=== PATIENT | male | born 1980 | race Caucasian/White ===

== ENCOUNTER 2016-08-05 19:01 | Emergency (ER) | payer OTHER ==
[~2016-08-05] VITALS: Ht 167.6 cm; Wt 104.0 kg
[~2016-08-05 19:01] MED LIST: ALBU18HF IH; ARIP5TAB7 PO; AUG875 PO; LOPE1LIQ32 PO
[2016-08-05 19:17] VITALS: Ht 167.6 cm; Wt 104.0 kg
[2016-08-05] MEDS ORDERED: METHYLPREDNISOLONE 125 MG INJ IM STA (19:35)
[2016-08-05] MEDS ORDERED: TERBUTALINE 1 MG/ML INJ SC STA (19:35)
[2016-08-05] MEDS ORDERED: ALBUTEROL 0.5% (NEB) 2.5 MG/0.5 ML AMP INH STA (19:35)
[2016-08-05] MEDS ORDERED: IPRATROPIUM (NEB) 0.5 MG/2.5 ML AMP INH STA (19:35)
--- NOTE | 2016-08-05 20:38 | RADRPT ---
PROCEDURE: XR Chest. CLINICAL INDICATION: Asthma exacerbation. TECHNIQUE: Portable AP semi erect view of the chest was obtained. COMPARISON: None. FINDINGS: The cardiomediastinal silhouette is within normal limits. The lungs are clear. The diaphragm is nor mal in location. There is no evidence for pleural effusion, pneumothorax or pulmonary vascular conge stion. The osseous structures are intact with no evidence for acute abnormality. RPTAT:HJJR IMPRESSION: No evidence for acute intrathoracic pathology. Physician Shea Date Time Electronically viewed and signed by David Marcial Physician on 08/05/2016 20:38 JR/
[2016-08-05] MEDS ORDERED: ALBU8.5H3 INH (20:43)
[2016-08-05] MEDS ORDERED: AZIT250T94 PO (20:43)
[2016-08-05] MEDS ORDERED: PRED20TA PO (20:43)
--- NOTE | 2016-08-05 20:46 | ERD ---
ER Documentation Chief Complaint Date/Time DATE: 08/05/16 TIME: 20:44 Chief Complaint cough x 4 days, HPI This a 36-year-old male who has had a cough for 4 days with wheezing. Patient has apparent history of COPD but has never smoked. Patient's had no fever and has a dry cough no sputum production no shortness of breath and dyspnea on exertion no orthopnea. No chest pain. No runny nose no body aches. The patient is a non-smoker ROS All systems reviewed and are negative except as per history of present illness. Medications Home Meds Active Scripts Azithromycin* (Zithromax*) 250 Mg Tablet, 250 MG PO .ZPACK DIRECTED, #6 TAB TAKE 500 MG (2 TABS) THE FIRST DAY THEN 250 MG (1 TAB) DAYS 2-5 Prov:DANE CARBAJAL DO 08/05/16 Prednisone* (Prednisone*) 20 Mg Tab, 60 MG PO DAILY for 5 Days, TAB Prov:DANE CARBAJAL DO 08/05/16 Albuterol Sulfate* (Proair HFA*) 8.5 Gm Hfa.aer.ad, 2 PUFF INH Q4, #1 INHALER Prov:DANE CARBAJAL DO 08/05/16 Reported Medications Loperamide Hcl (Imodium A-D) 1 Mg/7.5 Ml Liquid, 1 MG PO PRN 05/26/14 Aripiprazole* (Abilify*) 5 Mg Tab, 5 MG PO DAILY, TAB 05/26/14 Albuterol Sulfate* (Ventolin HFA*) 18 Gm Hfa.aer.ad, 2 PUFF IH Q4H Y for WHEEZING AND RESP DISTRESS, EA 05/26/14 Amoxicillin-Clavulanate K* (Augmentin*) 875 Mg Tab, 875 MG PO DAILY, TAB 05/26/14 Allergies Allergies: Coded Allergies: No Known Allergy (Unverified , 08/05/16) PMhx/Soc History of Surgery: No Anesthesia Reaction: No Hx Neurological Disorder: No Hx Respiratory Disorders: Yes (BRONCHITIS, ASTHMA) Hx Cardiac Disorders: No Hx Psychiatric Problems: Yes (MENTAL ILLNESS) Hx Miscellaneous Medical Probl: No Hx Alcohol Use: No Hx Substance Use: No Hx Tobacco Use: No Smoking Status: Unknown if ever smoked FmHx Family History: No coronary disease Physical Exam Vitals Vital Signs Date Time Temp Pulse Resp B/P Pulse Ox O2 Delivery O2 Flow Rate FiO2 08/05/16 19:50 101 18 100 21 08/05/16 19:17 98.6 118 20 138/73 98 Physical Exam Const: Well-developed, well-nourished Head: Atraumatic, normocephalic Eyes: Normal Conjunctiva, PERRLA, EOMI, normal sclera, no nystagmus ENT: Normal External Ears, Nose and Mouth, moist mucus membranes. Neck: Full range of motion. No meningismus, no lymphadenopathy. Resp: Mild decreased breath sounds scattered throughout the lung johnson with some mild expiratory wheezing, but good air movement Cardio: Regular rate and rhythm, no murmurs, S1 S2 present Abd: Soft, non tender x 4, non distended. Normal bowel sounds, no guarding or rebound, no pulsitile abdominal masses or bruits Skin: No petechiae or rashes, no ecchymosis , no maculopapular rash Back: No midline or flank tenderness Ext: No cyanosis, or edema, FROM x 4, normal inspection, neurovascularly intact x 4 Neur: Awake and alert, STR 5/5 x 4, sensation intact x 4, no focal findings, cerebellum intact Psych: Normal Mood and Affect Results 24 hrs Current Medications Medications (Trade) Dose Ordered Sig/Zita Route PRN Reason Start Time Stop Time Status Last Admin Dose Admin Albuterol (Proventil 0.5% (Neb)) 10 mg ONCE STAT INH 08/05/16 19:35 08/05/16 19:36 DC 08/05/16 19:50 Ipratropium [place] (Atrovent 0.02% (Neb)) 1 mg ONCE STAT INH 08/05/16 19:35 08/05/16 19:36 DC 08/05/16 19:50 Methylprednisolone Sodium Succinate (Solu-Medrol) 125 mg ONCE STAT IM 08/05/16 19:35 08/05/16 19:36 DC 08/05/16 19:49 Terbutaline Sulfate (Brethine) 0.25 mg ONCE STAT SC 08/05/16 19:35 08/05/16 19:36 DC 08/05/16 19:49 Procedures/MDM EKG: Rate/Rhythm: Sinus tachycardia 114 QRS, ST, QT: NORMAL FL, QRS, QT] Impression: [NORMAL EKG] PROCEDURE: XR Chest. CLINICAL INDICATION: Asthma exacerbation. TECHNIQUE: Portable AP semi erect view of the chest was obtained. COMPARISON: None. FINDINGS: The cardiomediastinal silhouette is within normal limits. The lungs are clear. The diaphragm is normal in location. There is no evidence for pleural effusion, pneumothorax or pulmonary vascular congestion. The osseous structures are intact with no evidence for acute abnormality. RPTAT:HJJR IMPRESSION: No evidence for acute intrathoracic pathology. Physician Shea Date Time Electronically viewed and signed by Physician Shea on 08/05/2016 20:38 JR/ CC: DANE CARBAJAL DO Patient received an hour-long breathing treatment with albuterol and Atrovent, Solu-Medrol 125 mg IM, terbutaline. Repeat lung exam 2044 demonstrates good air movement no wheezing patient states he feels much better. We will discharge him on Zithromax prednisone and albuterol Departure Diagnosis: Primary Impression: Bronchitis Condition: Stable Patient Instructions: Bronchitis With Wheezing (Adult) DANE CARBAJAL DO Aug 05, 2016 20:46
[2016-08-05 20:51] VITALS: TEMP 97.9
[2016-08-05 21:09] VITALS: PULSE 108
== END 2016-08-05 21:09 | disposition home or self-care (01) ==
LOC: FTE 19:01
DX: J20.9 Acute bronchitis, unspecified (principal); J45.909 Unspecified asthma, uncomplicated
CPT/HCPCS: 71010; 94644; 96372; J2930; J3105; Z7502; Z7610; 93005